=== PATIENT | female | born 2000 | race Caucasian/White ===

== ENCOUNTER 2018-09-15 17:17 | Emergency (ER) | payer OTHER ==
--- NOTE | 2018-09-15 17:58 | ER ---
Nurse's Notes [facility] Name: Sherice Castañeda Age: 17 yrs Sex: Female : 2000 Arrival Date: 09/15/2018 Time: 17:21 Bed 23 Private MD: Diagnosis: Contusion of left great toe without damage to nail Presentation: 09/15 17:25 Presenting complaint: Patient states: i think i broke my L big toe late last night hj while playing with my dog;. Transition of care: patient was not received from another setting of care. Onset of symptoms was September 15, 2018. Risk Assessment: Do you want to hurt yourself or someone else? Patient reports no desire to harm self or others. Initial Sepsis Screen: Does the patient meet any 2 criteria? No. Patient's initial sepsis screen is negative. Does the patient have a suspected source of infection? No. Patient's initial sepsis screen is negative. Care prior to arrival: None. 17:25 Method Of Arrival: Ambulatory 17:25 Acuity: BOZENA 4 Triage Assessment: 17:41 General: Appears uncomfortable, Behavior is calm, cooperative. Pain: Complains of pain ls4 in left first toe, medial aspect of left toes and Left first toenail Pain currently is 1. out of 10 on a pain scale. Neuro: No deficits noted. Cardiovascular: No deficits noted. Respiratory: No deficits noted. Derm: Bruising that is on left first toe. PREPARING BOX TENDER: 17:27 LMP N/A - control method Historical: - Allergies: 17:27 No Known Allergies; - PMHx: 17:27 None; hj - PSHx: 17:27 None; hj - Social history:: Smoking status: Patient/guardian denies using tobacco. - Ebola Screening: : Patient negative for fever greater than or equal to 101.5 degrees Fahrenheit, and additional compatible Ebola Virus Disease symptoms Patient denies exposure to infectious person Patient denies travel to an Ebola-affected area in the 21 days before illness onset No symptoms or risks identified at this time. Screenin:32 Abuse screen: Denies threats or abuse. Denies injuries from another. Nutritional ls4 screening: No deficits noted. Tuberculosis screening: No symptoms or risk factors identified. Fall Risk None identified. Assessment: 18:25 Reassessment: Patient appears in no apparent distress at this time. No changes from ls4 previously documented assessment. Patient and/or family updated on plan of care and expected duration. Pain level reassessed. Patient is alert, oriented x 3, equal unlabored respirations, skin warm/dry/pink. Vital Signs: 17:27 BP 133 / 82; Pulse 77; Resp 18; Temp 99.1(TE); Pulse Ox 97% on R/A; Weight 56.7 kg; hj Height 5 ft. 4 in. (162.56 cm); Pain 10/10; 18:25 BP 128 / 72; Pulse 76; Resp 16; Pulse Ox 99% on R/A; Pain 8/10; ls4 17:27 Body Mass Index 21.46 (56.70 kg, 162.56 cm) ED Course: 17:21 Patient arrived in ED. mr 17:26 Triage completed. hj 17:28 Arm band placed on right wrist. hj 17:30 Giovanna Weems FNP-C [facility]. kb 17:30 Barrett Ascencio MD is Attending Physician. kb 17:31 Ember Leon, RN is Primary Nurse. ls4 17:32 Patient has correct armband on for positive identification. Bed in low position. Call ls4 light in reach. Side rails up X 1. 17:32 No provider procedures requiring assistance completed. Patient did not have IV access ls4 during this emergency room visit. 17:54 Foot Left 3 View In Process Unspecified. EDMS Administered Medications: No medications were administered Outcome: 17:58 Discharge ordered by MD. kb 18:25 Discharged to home ambulatory, with family. ls4 18:25 Condition: good 18:25 Discharge instructions given to patient, significant other, Instructed on discharge instructions, follow up and referral plans. safety practices, Demonstrated understanding of instructions, follow-up care, medications. 18:26 Patient left the ED. ls4 Signatures: Dispatcher [employer] EDMS Giovanna Weems FNP-C FNP-Ckb Ulysses Bibi mr PabloGovind, RN RN Ember Leon, RN RN ls4 Corrections: (The following items were deleted from the chart) 17:28 17:27 Pulse 77bpm; Resp 18bpm; Pulse Ox 97% RA; Temp 99.1F Temporal; 56.7 kg; Height 5 hj ft. 4 in.; BMI: 21.4; Pain 10/10; hj
--- NOTE | 2018-09-15 17:58 | EDPHYS ---
Physician Documentation [facility] Name: Sherice Castañeda Age: 17 yrs Sex: Female : 2000 Arrival Date: 09/15/2018 Time: 17:21 Bed 23 Private MD: ED Physician Barrett Ascencio HPI: 09/15 17:52 This 17 yrs old Female presents to ER via Ambulatory with complaints of Toe kb Injury. 17:54 The patient presents with a contusion, an injury, pain, that is acute, tenderness. The kb complaints affect the left first toe. Context: The problem was sustained at home, resulted from the patient kicking, a wall, the patient can fully bear weight, the patient is able to ambulate. Onset: The symptoms/episode began/occurred yesterday. Modifying factors: The symptoms are alleviated by nothing, the symptoms are aggravated by movement. Associated signs and symptoms: The patient has no apparent associated signs or symptoms. Severity of symptoms: At their worst the symptoms were mild, in the emergency department the symptoms are unchanged. The patient has not experienced similar symptoms in the past. The patient has not recently seen a physician. Pt reports kicking wall last night while playing with dog. Pain today. INGREDIENT SPECIALIST: 17:27 LMP N/A - control method hj Historical: - Allergies: 17:27 No Known Allergies; hj - PMHx: 17:27 None; hj - PSHx: 17:27 None; hj - Social history:: Smoking status: Patient/guardian denies using tobacco. - Ebola Screening: : Patient negative for fever greater than or equal to 101.5 degrees Fahrenheit, and additional compatible Ebola Virus Disease symptoms Patient denies exposure to infectious person Patient denies travel to an Ebola-affected area in the 21 days before illness onset No symptoms or risks identified at this time. ROS: 17:54 Constitutional: Negative for fever, chills, and weight loss, Cardiovascular: Negative kb for chest pain, palpitations, and edema, Respiratory: Negative for shortness of breath, cough, wheezing, and pleuritic chest pain, Abdomen/GI: Negative for abdominal pain, nausea, vomiting, diarrhea, and constipation, Neuro: Negative for headache, weakness, numbness, tingling, and seizure. 17:54 MS/extremity: Positive for injury or acute deformity, ecchymosis, pain, of the left first toe. Exam: 17:54 Constitutional: This is a well developed, well nourished patient who is awake, alert, kb and in no acute distress. Head/Face: Normocephalic, atraumatic. Chest/axilla: Normal chest wall appearance and motion. Nontender with no deformity. No lesions are appreciated. Cardiovascular: Regular rate and rhythm with a normal S1 and S2. No gallops, murmurs, or rubs. Normal PMI, no JVD. No pulse deficits. Respiratory: Lungs have equal breath sounds bilaterally, clear to auscultation and percussion. No rales, rhonchi or wheezes noted. No increased work of breathing, no retractions or nasal flaring. Abdomen/GI: Soft, non-tender, with normal bowel sounds. No distension or tympany. No guarding or rebound. No evidence of tenderness throughout. Back: No spinal tenderness. No costovertebral tenderness. Full range of motion. Neuro: Awake and alert, GCS 15, oriented to person, place, time, and situation. Cranial nerves II-XII grossly intact. Motor strength 5/5 in all extremities. Sensory grossly intact. Cerebellar exam normal. Normal gait. 17:54 Musculoskeletal/extremity: Extremities: grossly normal except: noted in the left first toe: contusion, pain, ROM: intact in all extremities, Circulation is intact in all extremities. Sensation intact. Weight bearing: able to fully bear weight. Vital Signs: 17:27 BP 133 / 82; Pulse 77; Resp 18; Temp 99.1(TE); Pulse Ox 97% on R/A; Weight 56.7 kg; hj Height 5 ft. 4 in. (162.56 cm); Pain 10/10; 18:25 BP 128 / 72; Pulse 76; Resp 16; Pulse Ox 99% on R/A; Pain 8/10; ls4 17:27 Body Mass Index 21.46 (56.70 kg, 162.56 cm) hj MDM: 17:30 Patient medically screened. kb 17:52 Data reviewed: vital signs, nurses notes. Data interpreted: Pulse oximetry: on room air kb is 97 %. Interpretation: normal. 17:56 Test interpretation: by ED physician or midlevel provider: plain radiologic studies, kb negative for fracture. Counseling: I had a detailed discussion with the patient and/or guardian regarding: the historical points, exam findings, and any diagnostic results supporting the discharge/admit diagnosis, radiology results, the need for outpatient follow up, a family practitioner, to return to the emergency department if symptoms worsen or persist or if there are any questions or concerns that arise at home. 09/15 17:50 Order name: Foot Left 3 View; Complete Time: 18:24 EDMS Administered Medications: No medications were administered Disposition: 09/15/18 17:58 Discharged to Home. Impression: Contusion of left great toe without damage to nail. - Condition is Stable. - Discharge Instructions: Foot Contusion, [id number]. - Medication Reconciliation Form, Thank You Letter, Antibiotic Education, Prescription Opioid Use, Work release form form. - Follow up: Emergency Department; When: As needed; Reason: Worsening of condition. Follow up: Private Physician; When: 2 - 3 days; Reason: Recheck today's complaints, Continuance of care, Re-evaluation by your physician. Signatures: Dispatcher [employer] [facility] Giovanna Weems, STREETCAR REPAIRER-C STREETCAR REPAIRER-CkGovind Noel, RN RN Ember Leon RN RN ls4 Corrections: (The following items were deleted from the chart) 17:50 17:33 Foot Right 3 View+RAD.RAD.BRZ ordered. [facility] 18:26 17:58 09/15/2018 17:58 Discharged to Home. Impression: Contusion of left great toe ls4 without damage to nail. Condition is Stable. Discharge Instructions: Foot Contusion, [id number]. Forms are Medication Reconciliation Form, Thank You Letter, Antibiotic Education, Prescription Opioid Use. Follow up: Emergency Department; When: As needed; Reason: Worsening of condition. Follow up: Private Physician; When: 2 - 3 days; Reason: Recheck today's complaints, Continuance of care, Re-evaluation by your physician. kb
--- NOTE | 2018-09-15 18:21 | RAD REPORT ---
EXAM DESCRIPTION: RAD - Foot Left 3 View - 09/15/2018 5:52 pm CLINICAL HISTORY: Foot pain, blunt force trauma left first toe COMPARISON: None. FINDINGS: No fracture, dislocation or periosteal reaction. No acute or destructive bony process. No air or foreign body in the soft tissues. IMPRESSION: Negative left foot examination.
== END 2018-09-15 18:26 | disposition home or self-care (01) ==
LOC: ER 17:17
DX: S90.112A Contusion of left great toe without damage to nail, initial encounter (principal); W22.8XXA Striking against or struck by other objects, initial encounter; Y93.89 Activity, other specified; Y92.009 Unspecified place in unspecified non-institutional (private) residence as the place of occurrence of the external cause
CPT/HCPCS: 99283

== ENCOUNTER 2018-10-08 11:10 | Emergency (ER) | payer OTHER ==
--- NOTE | 2018-10-08 11:57 | RAD REPORT ---
EXAM DESCRIPTION: Cooper Erazo (2 Views)10/08/2018 11:51 am CLINICAL HISTORY: Cough COMPARISON: None FINDINGS: The lungs appear clear of acute infiltrate. The heart is normal size IMPRESSION: No acute abnormalities displayed
[2018-10-08] MEDS ORDERED: METHYLPREDNISOLONE 125 MG INJ ONE (11:58)
--- NOTE | 2018-10-08 12:21 | EDPHYS ---
Physician Documentation [facility] Name: Sherice Castañeda Age: 17 yrs Sex: Female : 2000 Arrival Date: 10/08/2018 Time: 11:14 Bed 17 Private MD: ED Physician Alejandro Tao HPI: 10/08 11:44 This 17 yrs old Female presents to ER via Ambulatory with complaints of Cough.kb 11:44 The patient or guardian reports cough, that is intermittent, described as moderate, kb with no sputum. Onset: The symptoms/episode began/occurred 2 week(s) ago. Severity of symptoms: At their worst the symptoms were moderate, in the emergency department the symptoms are unchanged. Modifying factors: The symptoms are alleviated by nothing, the symptoms are aggravated by nothing. Associated signs and symptoms: Pertinent positives: rhinorrhea, Pertinent negatives: chest pain, diarrhea, ear ache, fever, nausea, sore throat, vomiting. The patient has not experienced similar symptoms in the past. The patient has not recently seen a physician. Historical: - Allergies: 11:25 No Known Allergies; iw - Home Meds: 11:25 None [Active]; iw - PMHx: 11:25 None; iw - PSHx: 11:25 None; iw - Social history:: Smoking status: Patient uses tobacco products, denies chronic smoking, but will smoke occasionally. - Ebola Screening: : Patient negative for fever greater than or equal to 101.5 degrees Fahrenheit, and additional compatible Ebola Virus Disease symptoms Patient denies exposure to infectious person Patient denies travel to an Ebola-affected area in the 21 days before illness onset No symptoms or risks identified at this time. ROS: 11:43 Constitutional: Negative for fever, chills, and weight loss, Neck: Negative for injury, kb pain, and swelling, Cardiovascular: Negative for chest pain, palpitations, and edema, Abdomen/GI: Negative for abdominal pain, nausea, vomiting, diarrhea, and constipation, Back: Negative for injury and pain, MS/Extremity: Negative for injury and deformity, Skin: Negative for injury, rash, and discoloration, Neuro: Negative for headache, weakness, numbness, tingling, and seizure. 11:43 ENT: Positive for rhinorrhea. 11:43 Respiratory: Positive for cough, Negative for dyspnea on exertion, hemoptysis, orthopnea, pleurisy, shortness of breath, sputum production, wheezing. Exam: 11:44 Constitutional: This is a well developed, well nourished patient who is awake, alert, kb and in no acute distress. Head/Face: Normocephalic, atraumatic. Neck: Trachea midline, no thyromegaly or masses palpated, and no cervical lymphadenopathy. Supple, full range of motion without nuchal rigidity, or vertebral point tenderness. No Meningismus. Chest/axilla: Normal chest wall appearance and motion. Nontender with no deformity. No lesions are appreciated. Cardiovascular: Regular rate and rhythm with a normal S1 and S2. No gallops, murmurs, or rubs. Normal PMI, no JVD. No pulse deficits. Respiratory: Lungs have equal breath sounds bilaterally, clear to auscultation and percussion. No rales, rhonchi or wheezes noted. No increased work of breathing, no retractions or nasal flaring. Abdomen/GI: Soft, non-tender, with normal bowel sounds. No distension or tympany. No guarding or rebound. No evidence of tenderness throughout. Skin: Warm, dry with normal turgor. Normal color with no rashes, no lesions, and no evidence of cellulitis. MS/ Extremity: Pulses equal, no cyanosis. Neurovascular intact. Full, normal range of motion. Neuro: Awake and alert, GCS 15, oriented to person, place, time, and situation. Cranial nerves II-XII grossly intact. Motor strength 5/5 in all extremities. Sensory grossly intact. Cerebellar exam normal. Normal gait. 11:44 ENT: TM's: fluid levels, bilaterally. Vital Signs: 11:25 BP 119 / 84; Pulse 82; Resp 18; Pulse Ox 99% on R/A; iw MDM: 11:20 Patient medically screened. kb 11:43 Data reviewed: vital signs, nurses notes. Data interpreted: Pulse oximetry: on room air kb is 99 %. Interpretation: normal. 12:18 Counseling: I had a detailed discussion with the patient and/or guardian regarding: the kb historical points, exam findings, and any diagnostic results supporting the discharge/admit diagnosis, radiology results, the need for outpatient follow up, a family practitioner, to return to the emergency department if symptoms worsen or persist or if there are any questions or concerns that arise at home. 10/08 11:27 Order name: Chest Pa And Lat (2 Views) XRAY kb 10/08 12:22 Order name: RAD; Complete Time: 12:26 EDMS Administered Medications: 12:05 Drug: SOLU-Medrol 125 mg Route: IM; Site: right gluteus; em 12:55 Follow up: Response: No adverse reaction em Disposition: 10/08/18 12:18 Discharged to Home. Impression: Allergic rhinitis, unspecified. - Condition is Stable. - Discharge Instructions: Cough, Adult, [id number], Allergies, [id number]-[id number]-Dkae. - Medication Reconciliation Form, Thank You Letter, Antibiotic Education, Prescription Opioid Use, Work release form form. - Follow up: Private Physician; When: 2 - 3 days; Reason: Recheck today's complaints, Continuance of care, Re-evaluation by your physician. Follow up: Emergency Department; When: As needed; Reason: Worsening of condition. - Notes: Take an antihistamine with decongestant as directed (zyrtec D, josh D, or claritin D) Addendum: 10/13/2018 16:53 Co-signature as Attending Physician, Alejandro Tao MD I agree with the assessment and c estes plan of care. Signatures: Dispatcher [employer] Giovanna Glynn, SALES AND SERVICE SPECIALIST-C SALES AND SERVICE SPECIALIST-Ckb Alejandro Tao MD MD cha Munoz, Edgar, CURTAIN FRAMER CURTAIN FRAMER Kiana Rivas, ELENO RN iw Corrections: (The following items were deleted from the chart) 10/08 13:01 12:18 10/08/2018 12:18 Discharged to Home. Impression: Allergic rhinitis, unspecified. em Condition is Stable. Forms are Medication Reconciliation Form, Thank You Letter, Antibiotic Education, Prescription Opioid Use. Follow up: Private Physician; When: 2 - 3 days; Reason: Recheck today's complaints, Continuance of care, Re-evaluation by your physician. Follow up: Emergency Department; When: As needed; Reason: Worsening of condition. kb
--- NOTE | 2018-10-08 12:21 | ER ---
Nurse's Notes [facility] Name: Sherice Castañeda Age: 17 yrs Sex: Female : 2000 Arrival Date: 10/08/2018 Time: 11:14 Bed 17 Private MD: Diagnosis: Allergic rhinitis, unspecified Presentation: 10/08 11:23 Presenting complaint: Patient states: cough X 2 weeks, coughing up clear mucous. iw Transition of care: patient was not received from another setting of care. Onset of symptoms was September 28, 2018. Risk Assessment: Do you want to hurt yourself or someone else? Patient reports no desire to harm self or others. Initial Sepsis Screen: Does the patient meet any 2 criteria? No. Patient's initial sepsis screen is negative. Does the patient have a suspected source of infection? No. Patient's initial sepsis screen is negative. Care prior to arrival: None. 11:23 Method Of Arrival: Ambulatory iw 11:23 Acuity: BOZENA 4 iw Historical: - Allergies: 11:25 No Known Allergies; iw - Home Meds: 11:25 None [Active]; iw - PMHx: 11:25 None; iw - PSHx: 11:25 None; iw - Social history:: Smoking status: Patient uses tobacco products, denies chronic smoking, but will smoke occasionally. - Ebola Screening: : Patient negative for fever greater than or equal to 101.5 degrees Fahrenheit, and additional compatible Ebola Virus Disease symptoms Patient denies exposure to infectious person Patient denies travel to an Ebola-affected area in the 21 days before illness onset No symptoms or risks identified at this time. Screenin:40 Abuse screen: Denies threats or abuse. Nutritional screening: No deficits noted. em Tuberculosis screening: No symptoms or risk factors identified. Fall Risk None identified. Assessment: 12:00 General: Appears in no apparent distress. comfortable, Behavior is calm, cooperative, em Denies fever. Pain: Denies pain. Neuro: Level of Consciousness is awake, alert, obeys commands, Oriented to person, place, time, situation. Cardiovascular: Capillary refill < 3 seconds Patient's skin is warm and dry. Respiratory: Reports cough that is productive, Airway is patent Respiratory effort is even, unlabored, Respiratory pattern is regular, symmetrical. GI: Abdomen is flat, Patient currently denies nausea, vomiting. : No signs and/or symptoms were reported regarding the genitourinary system. Derm: Skin is intact, is healthy with good turgor, Skin is pink, warm \T\ dry. Musculoskeletal: Capillary refill < 3 seconds, Range of motion: intact in all extremities. Vital Signs: 11:25 BP 119 / 84; Pulse 82; Resp 18; Pulse Ox 99% on R/A; iw ED Course: 11:14 Patient arrived in ED. mr 11:20 Giovanna Weems FNP-C is [facility]. kb 11:20 Alejandro Tao MD is Attending Physician. kb 11:24 Triage completed. iw 11:26 Royer Romero LVN is Primary Nurse. em 11:40 Patient has correct armband on for positive identification. Placed in gown. Bed in low em position. Call light in reach. Adult w/ patient. 11:40 Arm band placed on. em 13:00 No provider procedures requiring assistance completed. Patient did not have IV access em during this emergency room visit. Administered Medications: 12:05 Drug: SOLU-Medrol 125 mg Route: IM; Site: right gluteus; em 12:55 Follow up: Response: No adverse reaction em Outcome: 12:18 Discharge ordered by MD. kb 13:00 Discharged to home ambulatory. em 13:00 Condition: good 13:00 Discharge instructions given to patient, Instructed on discharge instructions, follow up and referral plans. Demonstrated understanding of instructions, follow-up care. 13:01 Patient left the ED. em Signatures: Giovanna Weems FNP-C FNP-Cathleen Bibi Arora mr Royer Romero LVN LVN em Kiana Lyons, ELENO RN iw
== END 2018-10-08 13:01 | disposition home or self-care (01) ==
LOC: ER 11:10
DX: J30.9 Allergic rhinitis, unspecified (principal); Z72.0 Tobacco use
CPT/HCPCS: 71046; 96372; 99282; J2930

== ENCOUNTER 2018-10-13 14:28 | Emergency (ER) | payer OTHER ==
[2018-10-13] MEDS ORDERED: LEVALBUTEROL 1.25 MG/3 ML NEB ONE (16:23)
--- NOTE | 2018-10-13 16:31 | RAD REPORT ---
EXAM DESCRIPTION: Cooper Erazo (2 Views)10/13/2018 3:41 pm CLINICAL HISTORY: Cough COMPARISON: October 08, 2018 FINDINGS: The lungs appear clear of acute infiltrate. The heart is normal size IMPRESSION: No acute abnormalities displayed
--- NOTE | 2018-10-13 17:41 | ER ---
Nurse's Notes [facility] Name: Sherice Castañeda Age: 17 yrs Sex: Female : 2000 Arrival Date: 10/13/2018 Time: 14:32 Bed 28 Private MD: Diagnosis: Acute bronchitis Presentation: 10/13 14:40 Presenting complaint: Patient states: i was here about a week ago for cough and they hj gave a a shot, was sent home with nothing and was told it was allergies, i still have the cough and now im gasping for air when i cough and puking; reports fever; took dayquil, nyquil and its not helping;. Transition of care: patient was not received from another setting of care. Onset of symptoms was October 13, 2018. Risk Assessment: Do you want to hurt yourself or someone else? Patient reports no desire to harm self or others. Initial Sepsis Screen: Does the patient meet any 2 criteria? No. Patient's initial sepsis screen is negative. Does the patient have a suspected source of infection? No. Patient's initial sepsis screen is negative. Care prior to arrival: None. 14:40 Method Of Arrival: Ambulatory 14:40 Acuity: BOZENA 3 Triage Assessment: 15:13 General: Appears in no apparent distress. Pain: Denies pain. 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 - Social history:: Smoking status: Patient uses tobacco products, denies chronic smoking, but will smoke occasionally. - Ebola Screening: : Patient negative for fever greater than or equal to 101.5 degrees Fahrenheit, and additional compatible Ebola Virus Disease symptoms Patient denies exposure to infectious person. Screenin:13 Abuse screen: Denies threats or abuse. Denies injuries from another. Nutritional screening: No deficits noted. Tuberculosis screening: No symptoms or risk factors identified. Fall Risk None identified. Assessment: 15:23 General: Appears in no apparent distress. Behavior is calm, cooperative, appropriate wh for age. Pain: Denies pain. Neuro: Level of Consciousness is awake, alert, obeys commands. Cardiovascular: Heart tones S1 S2. Respiratory: Reports cough that is productive, Airway is patent Respiratory effort is even, unlabored, Respiratory pattern is regular, symmetrical, Breath sounds are clear bilaterally. GI: Abdomen is flat, non-distended. : No signs and/or symptoms were reported regarding the genitourinary system. EENT: No signs and/or symptoms were reported regarding the EENT system. Derm: Skin is intact, is healthy with good turgor, Skin is pink, warm \T\ dry. normal. Musculoskeletal: Range of motion: intact in all extremities. 16:56 Reassessment: Patient appears in no apparent distress at this time. Patient and/or family updated on plan of care and expected duration. Pain level reassessed. Patient is alert, oriented x 3, equal unlabored respirations, skin warm/dry/pink. Patient states feeling better. Vital Signs: 14:43 BP 131 / 72; Pulse 99; Resp 20; Temp 98.5(TE); Pulse Ox 98% on R/A; Weight 54.43 kg; Height 5 ft. 4 in. (162.56 cm); 15:30 BP 132 / 75; Pulse 109; Resp 18; Pulse Ox 100% on R/A; 16:56 BP 124 / 54; Pulse 92; Resp 18; Pulse Ox 99% on R/A; 14:43 Body Mass Index 20.60 (54.43 kg, 162.56 cm) ED Course: 14:32 Patient arrived in ED. mr 14:42 Triage completed. 14:43 Arm band placed on right wrist. 15:04 Nestor Mckeon is Primary Nurse. 15:15 Jeff Bustillos PA is PHCP. [facility] 15:15 Nam Kruse MD is Attending Physician. [facility] 15:44 Patient has correct armband on for positive identification. Call light in reach. Side rails up X 1. Pulse ox on. NIBP on. 16:07 Chest Pa And Lat (2 Views) In Process Unspecified. EDMS 17:55 No provider procedures requiring assistance completed. Patient did not have IV access during this emergency room visit. Administered Medications: 16:11 Drug: Xopenex (3) 1.25 mg Route: Inhalation; 17:56 Follow up: Response: No adverse reaction Outcome: 17:39 Discharge ordered by . diego 17:55 Discharged to home ambulatory, with family. 17:55 Condition: good 17:55 Discharge instructions given to patient, Instructed on discharge instructions, follow up and referral plans. medication usage, POC Bronchitis Demonstrated understanding of instructions, follow-up care, medications, POC Prescriptions given X 2. 17:56 Patient left the ED. Signatures: Dispatcher [employer] EDMS Jeff Bustillos PA PA jmm Rivera, Mary mr Govind Pablo RN RN Nestor Santoyo Corrections: (The following items were deleted from the chart) 14:43 14:40 Presenting complaint: Patient states: i was here about a week ago for cough and hj they gave a a shot, was sent home with nothing and was told it was allergies, i still have the cough and now im gasping for air and puking; reports fever; took dayquil, nyquil and its not helping; hj
--- NOTE | 2018-10-13 17:41 | EDPHYS ---
Physician Documentation [facility] Name: Sherice Castañeda Age: 17 yrs Sex: Female : 2000 Arrival Date: 10/13/2018 Time: 14:32 Bed 28 Private MD: ED Physician Nam Kruse HPI: 10/13 15:42 This 17 yrs old Female presents to ER via Ambulatory with complaints of Cough.[facility] 15:42 The patient or guardian reports cough. Onset: The symptoms/episode began/occurred jmm gradually, 1 month(s) ago. Modifying factors: The symptoms are alleviated by nothing, the symptoms are aggravated by nothing. Associated signs and symptoms: Pertinent positives: fever, sore throat. This is a 17 year old female with no chronic medical conditions that presents to the ED with complains of ongoing cough for the past month. Patient was evaluated 1 week ago in the ED. Patient states she will vomit after episodes of coughing. Admits to subjective fever. . 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 - Social history:: Smoking status: Patient uses tobacco products, denies chronic smoking, but will smoke occasionally. - Ebola Screening: : Patient negative for fever greater than or equal to 101.5 degrees Fahrenheit, and additional compatible Ebola Virus Disease symptoms Patient denies exposure to infectious person. ROS: 15:42 Cardiovascular: Negative for chest pain, palpitations, and edema. jmm 15:42 Constitutional: Positive for chills, fever. 15:42 Respiratory: Positive for cough, shortness of breath. 15:42 All other systems are negative. Exam: 15:42 Constitutional: This is a well developed, well nourished patient who is awake, alert, jmm and in no acute distress. Head/Face: atraumatic. Eyes: EOMI, no conjunctival erythema appreciated 15:42 Neck: Trachea midline, Supple Chest/axilla: Normal chest wall appearance and motion. 15:42 ENT: Posterior pharynx: erythema, that is mild. 15:42 Cardiovascular: Rate: normal, Rhythm: regular. 15:42 Respiratory: the patient does not display signs of respiratory distress, Respirations: normal, Breath sounds: are clear throughout. 15:42 Abdomen/GI: Inspection: abdomen appears normal, Bowel sounds: normal. 15:42 Musculoskeletal/extremity: ROM: intact in all extremities. 15:42 Skin: Appearance: Color: normal in color. 15:42 Neuro: Orientation: is normal, Mentation: is normal, Memory: is normal. 15:42 Psych: Behavior/mood is pleasant, cooperative. Vital Signs: 14:43 BP 131 / 72; Pulse 99; Resp 20; Temp 98.5(TE); Pulse Ox 98% on R/A; Weight 54.43 kg; hj Height 5 ft. 4 in. (162.56 cm); 15:30 BP 132 / 75; Pulse 109; Resp 18; Pulse Ox 100% on R/A; wh 16:56 BP 124 / 54; Pulse 92; Resp 18; Pulse Ox 99% on R/A; wh 14:43 Body Mass Index 20.60 (54.43 kg, 162.56 cm) MDM: 15:42 Patient medically screened. [facility] 17:39 Data reviewed: vital signs, nurses notes. Counseling: I had a detailed discussion with [facility] the patient and/or guardian regarding: the historical points, exam findings, and any diagnostic results supporting the discharge/admit diagnosis, radiology results, the need for outpatient follow up, to return to the emergency department if symptoms worsen or persist or if there are any questions or concerns that arise at home. 18:30 ED course: Patient is alert and non toxic in appearance in the ED. No signs of resp [facility] distress appreciated. I do not suspect PE. Patient states feeling much better after nebulizer treatment. Patient advised to quit smoking. Patient understood.. 10/13 15:16 Order name: Chest Pa And Lat (2 Views) XRAY [facility] 10/13 16:07 Order name: Chest Pa And Lat (2 Views); Complete Time: 17:39 EDMS 10/13 15:58 Order name: Urine Dipstick-Ancillary (obtain specimen); Complete Time: 16:05 [facility] 10/13 15:58 Order name: Urine Test (obtain specimen); Complete Time: 16:05 [facility] Administered Medications: 16:11 Drug: Xopenex (3) 1.25 mg Route: Inhalation; 17:56 Follow up: Response: No adverse reaction Disposition: 10/14 07:24 Co-signature as Attending Physician, Nam Kruse MD I agree with the assessment and kdr plan of care. Disposition: 10/13/18 17:39 Discharged to Home. Impression: Acute bronchitis. - Condition is Stable. - Discharge Instructions: Acute Bronchitis, Adult. - Prescriptions for Prednisone 20 mg Oral Tablet - take 3 tablet by ORAL route once daily for 5 days; 15 tablet. Albuterol Sulfate 90 mcg/actuation - inhale 1-2 puff by INHALATION route every 4-6 hours; 1 Inhaler. - Medication Reconciliation Form, Thank You Letter, Antibiotic Education, Prescription Opioid Use, Work release form, Family Work Release form. - Follow up: Private Physician; When: 2 - 3 days; Reason: Recheck today's complaints, Continuance of care, Re-evaluation by your physician. Signatures: Dispatcher [employer] EDMS Nam Kruse MD MD kdr Mickail, Joel, PA PA jmm Joaquin, Henry, RN RN Nestor Mckeon Corrections: (The following items were deleted from the chart) 10/13 17:56 17:39 10/13/2018 17:39 Discharged to Home. Impression: Acute bronchitis. Condition is Stable. Forms are Medication Reconciliation Form, Thank You Letter, Antibiotic Education, Prescription Opioid Use. Follow up: Private Physician; When: 2 - 3 days; Reason: Recheck today's complaints, Continuance of care, Re-evaluation by your physician. diego
== END 2018-10-13 17:56 | disposition home or self-care (01) ==
LOC: ER 14:28
DX: J20.9 Acute bronchitis, unspecified (principal); Z72.0 Tobacco use
CPT/HCPCS: 71046; 99284